=== PATIENT | female | born 1970 | race Caucasian/White ===

== ENCOUNTER 2017-05-03 14:37 | Outpatient (CLI) ==
[2016-07-23 12:42] VITALS: BMI 29.1
--- NOTE | 2017-05-03 15:21 | DI ---
EXAM: LUMBAR SPINE 5 VIEWS HISTORY: Lumbar radiculopathy. FINDINGS: There is early facet arthropathy at the lumbosacral junction. Mild degenerative disc dis ease at L5/S1. No loss of vertebral body height, listhesis or fracture. No pars defect. Sacroilia c joints are within normal limits. IMPRESSION: Early degenerative disc and facet disease lumbosacral junction.
== END 2017-05-03 14:38 | disposition home or self-care (01) ==
LOC: RAD 14:37
PROVIDERS: ATTEND Pain Medicine Interventional Pain Medicine
DX: M54.16 Radiculopathy, lumbar region (principal); M54.17 Radiculopathy, lumbosacral region